=== PATIENT | male | born 1960 | race Hispanic/Latino ===

== ENCOUNTER 2024-02-25 02:12 | Emergency (ER) | payer OTHER ==
[~2024-02-25] VITALS: Ht 180.3 cm; Wt 79.4 kg
[~2024-02-25 02:12] MED LIST: BRILINTA90 MG PO; FLOMAX0.4 MG PO; LIPITOR10 MG PO; METOPROLOL TART25 MG PO; NEURONTIN300 MG PO; NEXIUM40 MG PO; NITROGLYCERIN0.4 MG SL; RANOLAZINE ER500 MG PO
[2024-02-25 02:17] VITALS: PULSE 85; RESP 20; TEMP 98.5; O2SAT 98
[2024-02-25 02:53] LABS: BASOPHILS # (AUTO) 0.1 (0.0-0.1); BASOPHILS % 1.6 % (0.0-1.0); EOSINOPHILS # (AUTO) 0.5 (0.0-0.4); EOSINOPHILS % 6.8 % (0.0-6.0); HEMOGLOBIN 12.2 g/dL (14.0-18.0); LYMPHOCYTES # (AUTO) 1.7 (1.0-3.2); MEAN CORPUSCULAR HEMOGLOBIN 31.1 pg (28-32); MEAN CORPUSCULAR HGB CONC 32.1 g/dL (31-35); MEAN CORPUSCULAR VOLUME 96.9 fL (81-99); MONOCYTES # (AUTO) 0.6 (0.2-0.8); MONOCYTES % 8.1 % (4.4-11.3); NEUTROPHILS % 58.2 % (38.7-80.0); PLATELET COUNT 216 x10e3/uL (140-360); RED BLOOD COUNT 3.92 x10e6/uL (4.3-5.7); RED CELL DISTRIBUTION WIDTH 13.1 % (11.7-14.4); WHITE BLOOD COUNT 6.92 x10e3/uL (4.8-10.8)
[2024-02-25 02:58] LABS: CLARITY,URINE TURBID (CLEAR); COLOR,URINE RED (YELLOW); PH,URINE 6.5 (5 - 7)
[2024-02-25 02:59] LABS: BACTERIA,URINE FEW /HPF; BILIRUBIN,URINE SMALL (NEGATIVE); EPITHELIAL CELLS,URINE RARE /LPF; GLUCOSE, URINE NEGATIVE (NEGATIVE); KETONES,URINE NEGATIVE (NEGATIVE); LEUKOCYTE ESTERASE ,URINE TRACE (NEGATIVE); NITRITE,URINE NEGATIVE (NEGATIVE); PROTEIN,URINE DIPSTICK >=300 (NEGATIVE); RBC,URINE >50 /HPF (0-5); URINE UROBILINOGEN 0.2 mg/dL (0.2 - 1)
[2024-02-25] MEDS: Morphine 4mg INJECTION 4 MG/ML INJ IV ONE (03:00)
[2024-02-25] MEDS: ONDANSETRON HCL INJ 2MG/ML 2ML 2 MG/ML VIAL IV STA (03:00)
[2024-02-25 03:08] LABS: ALBUMIN 3.7 g/dL (3.5-5.0); ALBUMIN/GLOBULIN RATIO 1.2 (0.8-2.0); ANION GAP 12.6 mmol/L (8-16); BILIRUBIN,TOTAL 0.4 mg/dL (0.2-1.2); CALCIUM 9.4 mg/dL (8.4-10.2); CREATININE, SERUM 0.95 mg/dL (0.72-1.25); POTASSIUM 3.6 mmol/L (3.5-5.1); TOTAL PROTEIN 6.7 g/dL (6.5-8.1)
[2024-02-25 03:14] LABS: INR 0.91; PROTHROMBIN TIME 12.7 seconds (11.9-14.5)
[2024-02-25 03:15] LABS: PARTIAL THROMBOPLASTIN TIME 30.4 seconds (23.8-35.5)
[2024-02-25] MEDS: LIDOCAINE JELLY 2% 10ML URO-JET TOP ONE (04:01)
[2024-02-25] MEDS ORDERED: LIDOCAINE JELLY 2% 10ML URO-JET ONE (04:01)
[2024-02-25] MEDS ORDERED: CEFUROXIME500 MG PO (05:29)
== END 2024-02-25 05:45 | disposition home or self-care (01) ==
LOC: ER 02:23
DX: R33.9 Retention of urine, unspecified (principal); R31.0 Gross hematuria; R10.30 Lower abdominal pain, unspecified
CPT/HCPCS: 36415; 51702; 74176; 80053; 81001; 85025; 85610; 85730; 87086; 99284; J2270; J2405; 51700

== ENCOUNTER 2024-03-06 00:33 | Emergency (ER) | payer OTHER ==
[~2024-03-06] VITALS: Ht 180.3 cm; Wt 79.4 kg
[~2024-03-06 00:33] MED LIST changes: +CEFUROXIME500 MG PO
[2024-03-06 00:41] VITALS: PULSE 85; RESP 17; TEMP 98.5; O2SAT 98
== END 2024-03-06 01:29 | disposition home or self-care (01) ==
LOC: ER 00:46
DX: Z46.6 Encounter for fitting and adjustment of urinary device (principal); I10 Essential (primary) hypertension; I25.10 Atherosclerotic heart disease of native coronary artery without angina pectoris; E78.5 Hyperlipidemia, unspecified; Z86.73 Personal history of transient ischemic attack (TIA), and cerebral infarction without residual deficits; Z85.46 Personal history of malignant neoplasm of prostate; Z95.5 Presence of coronary angioplasty implant and graft
CPT/HCPCS: 99282

== ENCOUNTER → 2025-02-15 | Day surgery (SDC) | payer MEDICARE ==
[~2025-02-15] MED LIST changes: +ACETAMINOPHEN 1000 MG/100 ML 100 ML IV ONE; +CLOPIDOGREL75 MG PO; +DEXAMETHASONE SOD PHOS INJ 4 MG/ML SDV ONE; +DOCUSATE SODIU100 MG PO; +EPHEDRINE SULFATE INJ 50 MG/ML VIAL ONE; +FARXIGA10 MG; +FENTANYL CITRATE/PF 100MCG/2 ML INJ ONE; +FEROSUL325 MG PO; +FINASTERIDE5 MG PO; +LIDOCAINE HCL 2% LOCAL INJ 5 ML SDV VIAL INJ ONE; +ONDANSETRON HCL INJ 2MG/ML 2ML 2 MG/ML VIAL ONE; +PHENYLEPHRINE HCL 1% 10 MG/ML VIAL ONE; +PROPOFOL IV EMULSION 10 MG/ML 20 ML VIAL ONE; +ROCURONIUM BROMIDE 1 ML IV ONE; +SEVOFLURANE INHAL SOLN 250 ML PEN BTL ONE; +SODIUM CHLORIDE 0.9% 100 ML ONE; +SUCRALFATE1 GM PO
[2025-02-15] MEDS: SODIUM CHLORIDE 0.9% 1000ML 1,000 ML ONE (07:48)
[2025-02-15] MEDS: GENTAMICIN 80MG/NS 100 ML 200 ML IV ONE (07:50)
[2025-02-15] MEDS: CEFEPIME HCL 1 GM VIAL ONE (07:51)
[2025-02-15 09:46] VITALS: TEMP 98.9
[2025-02-15] MEDS: FENTANYL CITRATE/PF 100MCG/2 ML INJ ONE (09:57)
[2025-02-15] MEDS: ACETAMINOPHEN/CODEINE 300MG - 30MG TAB ONE ×2 (10:25→11:40)
[2025-02-15] MEDS: PHENAZOPYRIDINE HCL 100 MG TAB ONE (10:25)
[2025-02-15 12:15] VITALS: BP 121/79; PULSE 80; RESP 15; O2SAT 98
[2025-02-15] MEDS: KETOROLAC TROMETHAMINE 30 MG/ML VIAL ONE (12:35)
== END | disposition home or self-care (01) ==
LOC: OR 07:10
PROVIDERS: ATTEND Urology
DX: N21.0 Calculus in bladder (principal); N39.0 Urinary tract infection, site not specified; N35.819 Other urethral stricture, male, unspecified site; N13.30 Unspecified hydronephrosis; Z85.46 Personal history of malignant neoplasm of prostate; N32.89 Other specified disorders of bladder; N13.8 Other obstructive and reflux uropathy; I10 Essential (primary) hypertension; E78.5 Hyperlipidemia, unspecified; I25.10 Atherosclerotic heart disease of native coronary artery without angina pectoris; G89.29 Other chronic pain; Z79.02 Long term (current) use of antithrombotics/antiplatelets; Z79.4 Long term (current) use of insulin; Z79.899 Other long term (current) drug therapy; Z95.5 Presence of coronary angioplasty implant and graft; Z92.3 Personal history of irradiation
CPT/HCPCS: 52317; 71046; 74018; 74420; 87086; 88300; C1758; C1769; J0131; J0692; J1100; J1580; J1885; J2003; J2371; J2405; J2704; J3010; J7030; J7050

== ENCOUNTER 2025-02-25 20:53 | Inpatient (IN) | payer MEDICARE ==
[~2025-02-25] VITALS: Ht 177.8 cm; Wt 73.5 kg
[~2025-02-25 20:53] MED LIST changes: -ACETAMINOPHEN 1000 MG/100 ML 100 ML IV ONE; -DEXAMETHASONE SOD PHOS INJ 4 MG/ML SDV ONE; -DOCUSATE SODIU100 MG PO; -EPHEDRINE SULFATE INJ 50 MG/ML VIAL ONE; -FENTANYL CITRATE/PF 100MCG/2 ML INJ ONE; -FEROSUL325 MG PO; -LIDOCAINE HCL 2% LOCAL INJ 5 ML SDV VIAL INJ ONE; -ONDANSETRON HCL INJ 2MG/ML 2ML 2 MG/ML VIAL ONE; -PHENYLEPHRINE HCL 1% 10 MG/ML VIAL ONE; -PROPOFOL IV EMULSION 10 MG/ML 20 ML VIAL ONE; -ROCURONIUM BROMIDE 1 ML IV ONE; -SEVOFLURANE INHAL SOLN 250 ML PEN BTL ONE; -SODIUM CHLORIDE 0.9% 100 ML ONE; -SUCRALFATE1 GM PO
[2025-02-25 23:34] LABS: BASOPHILS % 1.1 % (0.0-1.0); EOSINOPHILS % 5.7 % (0.0-6.0); LYMPHOCYTES % 21.4 % (18.0-39.1); MONOCYTES % 8.1 % (4.4-11.3); NEUTROPHILS % 63.6 % (38.7-80.0); RED CELL DISTRIBUTION WIDTH 20.2 % (11.7-14.4)
[2025-02-25 23:46] LABS: EST GLOMERULAR FILTRATION RATE 97.0 ML/MIN (>=60)
[2025-02-25 23:58] LABS: LEUKOCYTE ESTERASE ,URINE TRACE (NEGATIVE); PROTEIN,URINE DIPSTICK >=300 (NEGATIVE); URINE UROBILINOGEN 0.2 mg/dL (0.2 - 1)
[2025-02-26] VITALS (13 sets, daily range): BP systolic 103–126; BP diastolic 64–94; PULSE 74–89; RESP 14–20; TEMP 97.6–98.4; O2SAT 96–100
[2025-02-26 00:15] LABS: EPITHELIAL CELLS,URINE FEW /LPF
[2025-02-26] MEDS ORDERED: ACETAMINOPHEN 1000 MG/100 ML 100 ML IV ONE (00:36)
[2025-02-26] MEDS: ACETAMINOPHEN 1000 MG/100 ML IV STA (00:44)
[2025-02-26] MEDS ORDERED: DOCUSATE SODIU100 MG PO (02:39)
[2025-02-26] MEDS ORDERED: FEROSUL325 MG PO (02:39)
[2025-02-26] MEDS ORDERED: SUCRALFATE1 GM PO (02:39)
[2025-02-26] MEDS: SODIUM CHLORIDE FLUSH 10 ML SYR INJ PRN (03:17)
[2025-02-26] MEDS: ACETAMINOPHEN 325 MG TAB PO PRN ×2 (05:59→12:38)
[2025-02-26] MEDS ORDERED: ONDANSETRON HCL INJ 2MG/ML 2ML 2 MG/ML VIAL IV PRN (09:30)
[2025-02-26] MEDS ORDERED: ALBUTEROL/IPRATROPIUM 3 ML NEB NEB PRN (09:30)
[2025-02-26] MEDS ORDERED: HYDRALAZINE HCL 20 MG/ML VIAL IV PRN (09:30)
[2025-02-26] MEDS ORDERED: LIDOCAINE 4% PATCH TP PRN (09:30)
[2025-02-26] MEDS ORDERED: BENZONATATE 100 MG CAP PO PRN (09:30)
[2025-02-26] MEDS ORDERED: POTASSIUM CHLORIDE 20 MEQ TAB CR PO PRN (09:30)
[2025-02-26] MEDS ORDERED: DIPHENHYDRAMINE HCL 25 MG CAP PO PRN (09:30)
[2025-02-26] MEDS ORDERED: SIMETHICONE 80 MG CHEW PO PRN (09:30)
[2025-02-26] MEDS ORDERED: DEXTROSE 50% SYRINGE 50 ML IV PRN ×2 (09:30)
[2025-02-26] MEDS: INSULIN LISPRO 100 UNIT/1 ML 3ML VIAL SQ SCH (11:30)
[2025-02-26] MEDS: HYDROCODONE/APAP 5MG-325MG TAB PO PRN (15:22)
[2025-02-26] MEDS: SODIUM CHLORIDE 0.9% 250ML 250 ML ONE (15:55)
[2025-02-26] MEDS: TAMSULOSIN HCL 0.4 MG CAP PO SCH (17:21)
[2025-02-26] MEDS: SUCRALFATE 1 GM TAB PO SCH (17:21)
[2025-02-26] MEDS: GABAPENTIN 300 MG CAP PO SCH (17:21)
[2025-02-26] MEDS: ATORVASTATIN 40 MG TAB PO SCH (21:50)
[2025-02-26] MEDS: RANOLAZINE 500 MG TABSR PO SCH (21:51)
[2025-02-26] MEDS: MELATONIN 5 MG TABLET PO PRN (22:01)
[2025-02-27] VITALS (8 sets, daily range): BP systolic 96–108; BP diastolic 51–84; PULSE 77–97; RESP 17–20; TEMP 97.4–98.6; O2SAT 96–100
[2025-02-27 05:32] LABS: BASOPHILS % 1.7 % (0.0-1.0); EOSINOPHILS % 8.7 % (0.0-6.0); LYMPHOCYTES % 23.6 % (18.0-39.1); MONOCYTES % 8.7 % (4.4-11.3); NEUTROPHILS % 57.0 % (38.7-80.0); RED CELL DISTRIBUTION WIDTH 19.9 % (11.7-14.4)
[2025-02-27 06:07] LABS: EST GLOMERULAR FILTRATION RATE 97.0 ML/MIN (>=60)
[2025-02-27] MEDS: PANTOPRAZOLE SOD 40 MG TABEC PO SCH (07:30)
[2025-02-27] MEDS: FINASTERIDE 5 MG TAB PO SCH (09:00)
[2025-02-28] VITALS (8 sets, daily range): BP systolic 95–111; BP diastolic 46–76; PULSE 62–84; RESP 17–18; TEMP 97.3–98.9; O2SAT 96–100
[2025-02-28 05:32] LABS: BASOPHILS % 2.0 % (0.0-1.0); EOSINOPHILS % 9.8 % (0.0-6.0); LYMPHOCYTES % 22.4 % (18.0-39.1); MONOCYTES % 10.1 % (4.4-11.3); NEUTROPHILS % 55.5 % (38.7-80.0); RED CELL DISTRIBUTION WIDTH 19.5 % (11.7-14.4)
[2025-02-28 06:03] LABS: EST GLOMERULAR FILTRATION RATE 103.0 ML/MIN (>=60)
[2025-03-01] VITALS (11 sets, daily range): BP systolic 92–110; BP diastolic 60–70; PULSE 57–99; RESP 15–18; TEMP 97.8–98.5; O2SAT 95–100
[2025-03-01 05:20] LABS: BASOPHILS % 1.8 % (0.0-1.0); EOSINOPHILS % 10.3 % (0.0-6.0); LYMPHOCYTES % 24.1 % (18.0-39.1); MONOCYTES % 9.0 % (4.4-11.3); NEUTROPHILS % 54.6 % (38.7-80.0); RED CELL DISTRIBUTION WIDTH 19.4 % (11.7-14.4)
[2025-03-01 05:52] LABS: EST GLOMERULAR FILTRATION RATE 99.0 ML/MIN (>=60)
[2025-03-02] VITALS (7 sets, daily range): BP systolic 96–146; BP diastolic 62–72; PULSE 65–83; RESP 16–20; TEMP 97.7–98.2; O2SAT 97–100
[2025-03-02] MEDS ORDERED: LIDOCAINE HCL 2% LOCAL INJ 5 ML SDV VIAL INJ ONE (08:23)
[2025-03-02] MEDS ORDERED: FENTANYL CITRATE/PF 100MCG/2 ML INJ ONE (08:23)
[2025-03-02] MEDS ORDERED: PROPOFOL IV EMULSION 10 MG/ML 20 ML VIAL ONE (08:23)
[2025-03-02] MEDS ORDERED: ONDANSETRON HCL INJ 2MG/ML 2ML 2 MG/ML VIAL ONE (08:23)
[2025-03-02] MEDS ORDERED: PHENYLEPHRINE HCL 1% 10 MG/ML VIAL ONE (08:45)
[2025-03-02] MEDS: HYDROMORPHONE 1MG/1ML INJ ONE ×2 (09:34→10:01)
[2025-03-02] MEDS: CEFTRIAXONE 1 GM VIAL ONE (10:30)
[2025-03-02] MEDS ORDERED: ONDANSETRON HCL INJ 2MG/ML 2ML 2 MG/ML VIAL IV PRN (10:30)
[2025-03-02] MEDS ORDERED: DIPHENHYDRAMINE HCL 25 MG CAP PO PRN (10:30)
[2025-03-02] MEDS ORDERED: NALOXONE HCL INJ 0.4 MG/ML AMP IV PRN (10:30)
[2025-03-02] MEDS ORDERED: PHENAZOPYRIDINE HCL 100 MG TAB PO PRN (10:30)
[2025-03-02] MEDS: SODIUM CHLORIDE 0.9% 100 ML ONE (10:30)
[2025-03-02] MEDS: MORPHINE SULFATE 1 MG/ML 30ML PCA IV PRN (10:38)
[2025-03-02] MEDS: SODIUM CHLORIDE 0.9% 1000ML 1,000 ML IV SCH (10:40)
[2025-03-02 12:52] LABS: BASOPHILS % 1.0 % (0.0-1.0); EOSINOPHILS % 5.3 % (0.0-6.0); LYMPHOCYTES % 15.0 % (18.0-39.1); MONOCYTES % 7.0 % (4.4-11.3); NEUTROPHILS % 71.4 % (38.7-80.0); RED CELL DISTRIBUTION WIDTH 19.0 % (11.7-14.4)
[2025-03-02 13:14] LABS: EST GLOMERULAR FILTRATION RATE 104.0 ML/MIN (>=60)
[2025-03-03] VITALS (7 sets, daily range): BP systolic 98–109; BP diastolic 63–76; PULSE 71–86; RESP 16–19; TEMP 98.2–98.8; O2SAT 92–100
[2025-03-03 09:24] LABS: BASOPHILS % 0.6 % (0.0-1.0); EOSINOPHILS % 3.1 % (0.0-6.0); LYMPHOCYTES % 7.2 % (18.0-39.1); MONOCYTES % 6.3 % (4.4-11.3); NEUTROPHILS % 82.4 % (38.7-80.0); RED CELL DISTRIBUTION WIDTH 19.0 % (11.7-14.4)
[2025-03-03 09:40] LABS: EST GLOMERULAR FILTRATION RATE 102.0 ML/MIN (>=60)
[2025-03-03] MEDS: DOCUSATE SODIUM 100 MG CAP PO PRN (21:14)
[2025-03-04] VITALS (9 sets, daily range): BP systolic 92–132; BP diastolic 57–79; PULSE 60–88; RESP 15–19; TEMP 97.4–100.3; O2SAT 93–99
[2025-03-04 05:39] LABS: BASOPHILS % 1.4 % (0.0-1.0); EOSINOPHILS % 11.0 % (0.0-6.0); LYMPHOCYTES % 22.9 % (18.0-39.1); MONOCYTES % 11.0 % (4.4-11.3); NEUTROPHILS % 53.5 % (38.7-80.0); RED CELL DISTRIBUTION WIDTH 18.8 % (11.7-14.4)
[2025-03-04 06:20] LABS: EST GLOMERULAR FILTRATION RATE 103.0 ML/MIN (>=60)
[2025-03-04] MEDS ORDERED: ONDANSETRON HCL 4 MG ORAL DISINTEGRATING TAB PO PRN (14:15)
[2025-03-04] MEDS ORDERED: SODIUM CHLORIDE 0.9% 250ML 250 ML ONE (17:48)
[2025-03-04] MEDS: SODIUM CHLORIDE 0.9% 250ML 250 ML IV ONE (18:38)
== END 2025-03-05 00:04 | disposition home or self-care (01) | DRG 669 ==
LOC: ER 22:59 → ERHOLD 02-26 00:22 → MED/SURG 02-26 01:15
PROVIDERS: ADMIT Internal Medicine; ATTEND Internal Medicine
PROC: 0T9B70Z Drainage of Bladder with Drainage Device, Via Natural or Artificial Opening (ICD-10-PCS; principal; 2025-02-26)
PROC: 0TBB8ZZ Excision of Bladder, Via Natural or Artificial Opening Endoscopic (ICD-10-PCS; 2025-03-02)
PROC: 0TCB8ZZ Extirpation of Matter from Bladder, Via Natural or Artificial Opening Endoscopic (ICD-10-PCS; 2025-03-02)
PROC: 0T9B70Z Drainage of Bladder with Drainage Device, Via Natural or Artificial Opening (ICD-10-PCS; 2025-03-02)
PROC: BT141ZZ Fluoroscopy of Kidneys, Ureters and Bladder using Low Osmolar Contrast (ICD-10-PCS; 2025-03-02)
PROC: 30233N1 Transfusion of Nonautologous Red Blood Cells into Peripheral Vein, Percutaneous Approach (ICD-10-PCS; 2025-03-04)
DX: N35.919 Unspecified urethral stricture, male, unspecified site (principal); N30.41 Irradiation cystitis with hematuria; C67.5 Malignant neoplasm of bladder neck; D64.9 Anemia, unspecified; R33.9 Retention of urine, unspecified; E78.5 Hyperlipidemia, unspecified; R31.0 Gross hematuria; N20.0 Calculus of kidney; I10 Essential (primary) hypertension; N32.81 Overactive bladder; I25.10 Atherosclerotic heart disease of native coronary artery without angina pectoris; N39.41 Urge incontinence; N28.1 Cyst of kidney, acquired; K80.20 Calculus of gallbladder without cholecystitis without obstruction; Z79.84 Long term (current) use of oral hypoglycemic drugs; Z79.02 Long term (current) use of antithrombotics/antiplatelets; Z96.0 Presence of urogenital implants; Z95.5 Presence of coronary angioplasty implant and graft; Z85.46 Personal history of malignant neoplasm of prostate; Z92.3 Personal history of irradiation; I25.2 Old myocardial infarction; Z86.73 Personal history of transient ischemic attack (TIA), and cerebral infarction without residual deficits; Z87.891 Personal history of nicotine dependence; Z82.49 Family history of ischemic heart disease and other diseases of the circulatory system
CPT/HCPCS: 36415; 51700; 74420; 80048; 80053; 81001; 82550; 82948; 83735; 84484; 85014; 85018; 85025; 86850; 86900; 86920; 87086; 88112; 88305; 88307; 88312; 88342; 93005; 94799; 99284; C1758; J0696; J1171; J2003; J2270; J2371; J2405; J2470; J7030; J7050; P9016

== ENCOUNTER 2025-03-24 02:14 | Inpatient (IN) | payer MEDICARE ==
[~2025-03-24] VITALS: Ht 180.3 cm; Wt 74.8 kg
[2025-03-24] VITALS (15 sets, daily range): BP systolic 89–119; BP diastolic 58–86; PULSE 64–88; RESP 14–26; TEMP 97.9–101.2; O2SAT 94–99
[~2025-03-24 02:14] MED LIST changes: +DOCUSATE SODIU100 MG PO; +FEROSUL325 MG PO; +SUCRALFATE1 GM PO
[2025-03-24] MEDS: Morphine 4mg INJECTION 4 MG/ML INJ IV ONE (02:42)
[2025-03-24] MEDS: ONDANSETRON HCL INJ 2MG/ML 2ML 2 MG/ML VIAL IV STA (02:42)
[2025-03-24] MEDS: SODIUM CHLORIDE 0.9% 1000ML 1,000 ML IV ONE (02:43)
[2025-03-24 02:52] LABS: BASOPHILS % 0.4 % (0.0-1.0); EOSINOPHILS % 0.0 % (0.0-6.0); LYMPHOCYTES % 3.6 % (18.0-39.1); MONOCYTES % 5.3 % (4.4-11.3); NEUTROPHILS % 89.6 % (38.7-80.0); RED CELL DISTRIBUTION WIDTH 16.0 % (11.7-14.4)
[2025-03-24] MEDS: MAGNESIUM SULFATE 2GM/50ML 50 ML IV ONE (03:03)
[2025-03-24 03:11] LABS: EST GLOMERULAR FILTRATION RATE 66.0 ML/MIN (>=60)
[2025-03-24] MEDS ORDERED: ONDANSETRON HCL INJ 2MG/ML 2ML 2 MG/ML VIAL IV PRN (06:00)
[2025-03-24] MEDS: SODIUM CHLORIDE 0.9% 1000ML 1,000 ML IV SCH (06:41)
[2025-03-24] MEDS: Morphine 4mg INJECTION 4 MG/ML INJ IV PRN (07:34)
[2025-03-24] MEDS: SODIUM CHLORIDE 0.9% 1000ML 1,000 ML IV STA (08:16)
[2025-03-24] MEDS ORDERED: DEXTROSE 50% SYRINGE 50 ML IV PRN (08:45)
[2025-03-24] MEDS ORDERED: POTASSIUM CHLORIDE 20 MEQ TAB CR PO PRN (08:45)
[2025-03-24] MEDS ORDERED: BENZONATATE 100 MG CAP PO PRN (08:45)
[2025-03-24] MEDS ORDERED: HYDRALAZINE HCL 20 MG/ML VIAL IV PRN (08:45)
[2025-03-24] MEDS ORDERED: DOCUSATE SODIUM 100 MG CAP PO PRN (08:45)
[2025-03-24] MEDS ORDERED: ALBUTEROL/IPRATROPIUM 3 ML NEB NEB PRN (08:45)
[2025-03-24] MEDS ORDERED: SIMETHICONE 80 MG CHEW PO PRN (08:45)
[2025-03-24] MEDS: MIDODRINE HCL 5 MG TABLET PO SCH (11:48)
[2025-03-24] MEDS: ACETAMINOPHEN 325 MG TAB PO PRN (12:47)
[2025-03-24] MEDS: SODIUM CHLORIDE 0.9% 250ML 250 ML IV ONE (13:05)
[2025-03-25] VITALS (17 sets, daily range): BP systolic 92–116; BP diastolic 51–73; PULSE 59–77; RESP 14–26; TEMP 98.5–98.9; O2SAT 92–98
[2025-03-25 07:06] LABS: BASOPHILS % 0.8 % (0.0-1.0); EOSINOPHILS % 2.8 % (0.0-6.0); LYMPHOCYTES % 9.1 % (18.0-39.1); MONOCYTES % 9.6 % (4.4-11.3); NEUTROPHILS % 77.4 % (38.7-80.0); RED CELL DISTRIBUTION WIDTH 15.9 % (11.7-14.4)
[2025-03-25 07:29] LABS: EST GLOMERULAR FILTRATION RATE 95.0 ML/MIN (>=60)
[2025-03-25] MEDS: PANTOPRAZOLE SOD 40 MG TABEC PO SCH (07:37)
[2025-03-25 11:01] LABS: EOSINOPHILS % (MANUAL) 1 % (0-7); LYMPHOCYTES % (MANUAL) 8 % (19-48); MONOCYTES % (MANUAL) 8 % (3.4-9.0); NEUTROPHILS % (MANUAL) 83 % (40-74)
[2025-03-25 11:02] LABS: PLATELET ESTIMATE ADEQUATE; PLATELET MORPHOLOGY COMMENT NORMAL
[2025-03-25] MEDS: GABAPENTIN 300 MG CAP PO SCH (17:15)
[2025-03-25] MEDS: TAMSULOSIN HCL 0.4 MG CAP PO SCH (17:15)
[2025-03-25 17:24] LABS: EST GLOMERULAR FILTRATION RATE 97.0 ML/MIN (>=60)
[2025-03-25] MEDS: Morphine 4mg INJECTION 4 MG/ML INJ IV PRN (21:13)
[2025-03-26] VITALS (16 sets, daily range): BP systolic 82–110; BP diastolic 50–84; PULSE 55–74; RESP 9–24; TEMP 97.5–98.5; O2SAT 92–100
[2025-03-26] MEDS: DIPHENHYDRAMINE HCL 25 MG CAP PO PRN (01:11)
[2025-03-26 06:32] LABS: BASOPHILS % 1.4 % (0.0-1.0); EOSINOPHILS % 8.3 % (0.0-6.0); LYMPHOCYTES % 14.7 % (18.0-39.1); MONOCYTES % 11.8 % (4.4-11.3); NEUTROPHILS % 63.5 % (38.7-80.0); RED CELL DISTRIBUTION WIDTH 15.8 % (11.7-14.4)
[2025-03-26 07:01] LABS: EST GLOMERULAR FILTRATION RATE 89.0 ML/MIN (>=60)
[2025-03-26] MEDS: FINASTERIDE 5 MG TAB PO SCH (08:42)
[2025-03-26 12:38] LABS: LEUKOCYTE ESTERASE ,URINE SMALL (NEGATIVE); PROTEIN,URINE DIPSTICK 2+ (NEGATIVE); URINE UROBILINOGEN 1 mg/dL (0.2 - 1)
[2025-03-26 12:54] LABS: WBC,URINE (MAN) >50 /HPF (0-5)
[2025-03-26 12:55] LABS: EPITHELIAL CELLS,URINE RARE /LPF
[2025-03-27] VITALS (9 sets, daily range): BP systolic 94–119; BP diastolic 58–71; PULSE 60–98; RESP 16–18; TEMP 97.4–98.4; O2SAT 91–99
[2025-03-27 05:41] LABS: BASOPHILS % 1.4 % (0.0-1.0); EOSINOPHILS % 8.3 % (0.0-6.0); LYMPHOCYTES % 15.7 % (18.0-39.1); MONOCYTES % 13.1 % (4.4-11.3); NEUTROPHILS % 61.0 % (38.7-80.0); RED CELL DISTRIBUTION WIDTH 15.7 % (11.7-14.4)
[2025-03-27 06:18] LABS: EST GLOMERULAR FILTRATION RATE 95.0 ML/MIN (>=60)
[2025-03-27] MEDS: Morphine 2mg Syringe 2 MG/ML SYR IV PRN (15:45)
[2025-03-28] VITALS (13 sets, daily range): BP systolic 97–118; BP diastolic 62–83; PULSE 59–85; RESP 16–19; TEMP 97.3–98.8; O2SAT 91–100
[2025-03-28] MEDS: PIPERACILLIN/TAZOBACTAM 3.375 GM VIAL ONE (17:12)
[2025-03-28] MEDS ORDERED: LIDOCAINE HCL 2% LOCAL INJ 5 ML SDV VIAL INJ ONE (17:13)
[2025-03-28] MEDS ORDERED: FENTANYL CITRATE/PF 100MCG/2 ML INJ ONE (17:13)
[2025-03-28] MEDS ORDERED: PROPOFOL IV EMULSION 10 MG/ML 20 ML VIAL ONE (17:14)
[2025-03-28] MEDS ORDERED: ROCURONIUM BROMIDE 1 ML IV ONE (17:14)
[2025-03-28] MEDS ORDERED: DEXAMETHASONE SOD PHOS INJ 4 MG/ML SDV ONE (17:29)
[2025-03-28] MEDS ORDERED: METOCLOPRAMIDE HCL 10 MG/2ML VIAL ONE (17:29)
[2025-03-28] MEDS ORDERED: EPHEDRINE SULFATE INJ 50 MG/ML VIAL ONE (17:43)
[2025-03-28] MEDS ORDERED: ACETAMINOPHEN 1000 MG/100 ML 100 ML IV ONE (17:52)
[2025-03-28] MEDS ORDERED: KETOROLAC TROMETHAMINE 30 MG/ML VIAL ONE (18:13)
[2025-03-28] MEDS ORDERED: ONDANSETRON HCL INJ 2MG/ML 2ML 2 MG/ML VIAL ONE (18:13)
[2025-03-28] MEDS ORDERED: SUGAMMADEX SODIUM 200 MG/2 ML VIAL IV ONE (18:37)
[2025-03-28] MEDS ORDERED: ACETAMINOPHEN 1000 MG/100 ML IV PRN (18:45)
[2025-03-29] VITALS (9 sets, daily range): BP systolic 106–142; BP diastolic 72–99; PULSE 61–87; RESP 16–18; TEMP 97.1–98; O2SAT 95–98
[2025-03-29 06:08] LABS: BASOPHILS % 0.3 % (0.0-1.0); EOSINOPHILS % 0.1 % (0.0-6.0); LYMPHOCYTES % 9.8 % (18.0-39.1); MONOCYTES % 6.1 % (4.4-11.3); NEUTROPHILS % 83.1 % (38.7-80.0); RED CELL DISTRIBUTION WIDTH 15.4 % (11.7-14.4)
[2025-03-29 06:25] LABS: EST GLOMERULAR FILTRATION RATE 96.0 ML/MIN (>=60)
[2025-03-29] MEDS: ONDANSETRON HCL INJ 2MG/ML 2ML 2 MG/ML VIAL IV PRN (09:36)
[2025-03-29] MEDS: HYDROCODONE/APAP 5MG-325MG TAB PO PRN (16:53)
[2025-03-30] MEDS: SODIUM CHLORIDE 0.9% 250ML 250 ML ONE (00:07)
[2025-03-30 03:44] VITALS: BP 113/67; PULSE 82; RESP 18; TEMP 97.8; O2SAT 96
[2025-03-30 06:42] VITALS: PULSE 78; RESP 20; O2SAT 95
[2025-03-30 08:15] VITALS: BP 124/75; PULSE 76; RESP 18; TEMP 98.1; O2SAT 98
[2025-03-30 09:09] VITALS: BP 124/75; PULSE 76; RESP 18; TEMP 98.1; O2SAT 98
== END 2025-03-30 14:30 | disposition home or self-care (01) | DRG 854 ==
LOC: ER 02:22 → ERHOLD 05:48 → MED/SURG3 09:50 → ICU 12:04 → OBSVTOIN 03-25 08:21 → MED/SURG 03-26 14:00
PROVIDERS: ADMIT Internal Medicine; ATTEND Internal Medicine
PROC: 02HV33Z Insertion of Infusion Device into Superior Vena Cava, Percutaneous Approach (ICD-10-PCS; 2025-03-24)
PROC: B548ZZA Ultrasonography of Superior Vena Cava, Guidance (ICD-10-PCS; 2025-03-24)
PROC: 3E04329 Introduction of Other Anti-infective into Central Vein, Percutaneous Approach (ICD-10-PCS; 2025-03-24)
PROC: 0FN44ZZ Release Gallbladder, Percutaneous Endoscopic Approach (ICD-10-PCS; 2025-03-28)
PROC: 0FT44ZZ Resection of Gallbladder, Percutaneous Endoscopic Approach (ICD-10-PCS; principal; 2025-03-28 17:18)
DX: A41.9 Sepsis, unspecified organism (principal); C79.51 Secondary malignant neoplasm of bone; I31.39 Other pericardial effusion (noninflammatory); I50.22 Chronic systolic (congestive) heart failure; K80.00 Calculus of gallbladder with acute cholecystitis without obstruction; N17.9 Acute kidney failure, unspecified; Q61.02 Congenital multiple renal cysts; N39.0 Urinary tract infection, site not specified; I11.0 Hypertensive heart disease with heart failure; K82.8 Other specified diseases of gallbladder; I25.10 Atherosclerotic heart disease of native coronary artery without angina pectoris; I25.82 Chronic total occlusion of coronary artery; Z95.5 Presence of coronary angioplasty implant and graft; F17.200 Nicotine dependence, unspecified, uncomplicated; I25.5 Ischemic cardiomyopathy; E78.5 Hyperlipidemia, unspecified; K20.90 Esophagitis, unspecified without bleeding; I95.9 Hypotension, unspecified; N20.0 Calculus of kidney; C67.9 Malignant neoplasm of bladder, unspecified; R31.29 Other microscopic hematuria; D64.9 Anemia, unspecified; Z71.3 Dietary counseling and surveillance; Z68.23 Body mass index [BMI] 23.0-23.9, adult; Z85.46 Personal history of malignant neoplasm of prostate; Z92.3 Personal history of irradiation; Z79.899 Other long term (current) drug therapy
CPT/HCPCS: 36415; 36569; 71045; 74177; 76705; 78315; 80048; 80053; 81001; 83690; 85025; 87040; 88304; 93005; 93306; 94799; 99252; 99284; A9503; C1766; G0378; J1100; J1885; J2003; J2270; J2405; J2470; J2543; J2765; J3475; J7030; J7050